=== PATIENT | female | born 1940 | race Caucasian/White ===

== ENCOUNTER 2016-08-26 14:27 | Inpatient (IN) | payer OTHER ==
[~2016-08-26] VITALS: Ht 167.6 cm; Wt 70.0 kg
[2016-08-26 15:15] LABS: EOSINOPHIL (%) 0 % (0-5); HEMATOCRIT 35.6 % (36.0-46.0); IMMATURE GRANULOCYTE (%) 0.4 % (0.0-0.7); INSTRUMENT ABS NEUTROPHIL CT 10.4 K/uL; LYMPHOCYTE COUNT 0.3 K/uL (1.0-2.8); MCH 28.3 PG (29.0-34.0); MCHC 33.7 G/DL (30.0-36.0); MEAN PLAT.VOLUME 8.5 uM^3 (9.5-12.4); MONOCYTE COUNT 0.6 K/uL (0-0.8); NEUTROPHIL (%) 92.1 % (45-76); NEUTROPHIL COUNT 10.4 K/uL (1.8-6.4); PLATELET COUNT 327 K/uL (156-360); RBC DIS.WIDTH-CV 13.8 % (11.8-14.6); RBC DIS.WIDTH-SD 42.5 % (39-53); RED BLOOD COUNT 4.24 M/uL (3.80-5.20); WHITE BLOOD COUNT 11.2 K/uL (4.1-10.2)
[2016-08-26 15:24] LABS: CHLORIDE 102 mEq/L (99-109); POTASSIUM 2.8 mEq/L (3.7-5.4); SODIUM 135 mEq/L (136-147)
[2016-08-26 15:25] LABS: GLUCOSE 124 mg/dL (70-99)
[2016-08-26 15:27] LABS: ANION GAP 9 MEQ/L (2-14)
[2016-08-26 15:29] LABS: GFR ESTIMATE (CALCULATED) > 59 mL/min/
[2016-08-26 15:30] LABS: UREA NITROGEN (BUN) 13 mg/dL (9-23)
[2016-08-26 15:43] LABS: TOTAL CK 4368 IU/L (1-294)
[2016-08-26 15:44] LABS: CREATINE KINASE 4368 IU/L (1-294)
[2016-08-26] MEDS ORDERED: BUSPAR10 MG PO (17:02)
[2016-08-26] MEDS ORDERED: LITHIUM CARBON300 MG PO (17:02)
[2016-08-26] MEDS ORDERED: CYMBALTA60 MG PO (17:03)
[2016-08-26] MEDS ORDERED: NEXIUM40 MG PO (17:03)
[2016-08-26] MEDS ORDERED: AMBIEN10 MG PO (17:03)
[2016-08-26] MEDS ORDERED: GABAPENTIN300 MG PO (17:04)
[2016-08-26] MEDS ORDERED: HYDROCHLOROTHIA25 MG PO (17:04)
[2016-08-26] MEDS ORDERED: PRAVASTATIN SOD40 MG PO (17:04)
[2016-08-26] MEDS ORDERED: MIRALAX255 GM PO (17:05)
[2016-08-26] MEDS ORDERED: ADVAIR 250/501 DISK IH (17:05)
[2016-08-26] MEDS ORDERED: NASACORT10.8 ML BOTH NARES (17:05)
[2016-08-26] MEDS ORDERED: LOSARTAN POTAS100 MG PO (17:05)
[2016-08-26] MEDS ORDERED: KLOR-CON SPRIN10 MEQ PO (17:06)
[2016-08-26] MEDS ORDERED: REFRESH EYE DR1 EACH BOTH EYES (17:06)
[2016-08-26] MEDS ORDERED: ZANTAC75 M1 PO (17:07)
[2016-08-26] MEDS ORDERED: EPIPEN ADU0.3 MG/0.3 IM (17:07)
[2016-08-26] MEDS ORDERED: SYNTHROID75 MCG PO (17:07)
[2016-08-26] MEDS ORDERED: PROAIR RESPICL90 MCG IH (17:07)
[2016-08-26 21:45] LABS: POTASSIUM 2.8 mEq/L (3.7-5.4)
[2016-08-26 21:54] LABS: TROP-I INTERPRETATION NEGATIVE; TROPONIN-I 0.03 ng/mL (0.0-0.30)
[2016-08-26 22:10] LABS: Estimated Average Glucose 123 mg/dL (70-123); HEMOGLOBIN A1c (GLYCOHEMOGLOB) 5.9 % HGB (Below 5.7)
[2016-08-26 23:00] VITALS: BP 156/98
[2016-08-27 00:52] LABS: HDL CHOLESTEROL 71 MG/DL (Desirable>=50); LDL CHOLESTEROL 40 mg/dL (Desirable<100); NON-HDL CHOLESTEROL 49 mg/dL (Desirable<160); TOTAL CHOLESTEROL 120 mg/dL (Desirable<200); TRIGLYCERIDES 47 MG/DL (Normal: <150)
[2016-08-27 03:30] LABS: HEMATOCRIT 33.9 % (36.0-46.0); MCH 28.7 PG (29.0-34.0); MCHC 33.3 G/DL (30.0-36.0); MEAN PLAT.VOLUME 8.8 uM^3 (9.5-12.4); PLATELET COUNT 331 K/uL (156-360); RBC DIS.WIDTH-CV 14.2 % (11.8-14.6); RBC DIS.WIDTH-SD 44.6 % (39-53); RED BLOOD COUNT 3.94 M/uL (3.80-5.20); WHITE BLOOD COUNT 10.7 K/uL (4.1-10.2)
[2016-08-27 03:37] LABS: CHLORIDE 108 mEq/L (99-109); POTASSIUM 2.5 mEq/L (3.7-5.4); SODIUM 140 mEq/L (136-147)
[2016-08-27 03:39] LABS: GLUCOSE 108 mg/dL (70-99)
[2016-08-27 03:41] LABS: ANION GAP 11 MEQ/L (2-14); TOTAL BILIRUBIN 0.3 mg/dL (0.0-1.0)
[2016-08-27 03:43] LABS: ALKALINE PHOSPHATASE 69 IU/L (3-129); GFR ESTIMATE (CALCULATED) > 59 mL/min/
[2016-08-27 03:44] LABS: UREA NITROGEN (BUN) 10 mg/dL (9-23)
[2016-08-27 03:54] LABS: TROP-I INTERPRETATION NEGATIVE; TROPONIN-I 0.04 ng/mL (0.0-0.30)
[2016-08-27 04:02] LABS: CREATINE KINASE 5633 IU/L (1-294)
[2016-08-27 08:00] VITALS: BP 154/68
[2016-08-27 10:17] LABS: TROP-I INTERPRETATION NEGATIVE; TROPONIN-I 0.04 ng/mL (0.0-0.30)
[2016-08-27 11:08] VITALS: BP 135/72
[2016-08-27 12:53] LABS: D-DIMER ELISA 1.24 mg/L FEU (< 0.57)
[2016-08-27 14:24] VITALS: BP 130/60
[2016-08-27 15:35] LABS: TROP-I INTERPRETATION NEGATIVE; TROPONIN-I 0.04 ng/mL (0.0-0.30)
[2016-08-27 15:39] VITALS: BP 132/61
[2016-08-27 15:42] LABS: ANION GAP 10 MEQ/L (2-14); CHLORIDE 104 MEQ/L (99-109); GFR ESTIMATE (CALCULATED) > 59 mL/min/; GLUCOSE 134 mg/dL (70-99); POTASSIUM 2.7 MEQ/L (3.7-5.4); SAMPLE HEMOLYSIS CHECK 0; SAMPLE ICTERIC CHECK 0; SAMPLE LIPEMIA CHECK 0; SODIUM 137 MEQ/L (136-147); UREA NITROGEN (BUN) 12 mg/dL (9-23)
[2016-08-27 15:44] LABS: CREATINE KINASE 3703 IU/L (1-294)
[2016-08-27 19:59] VITALS: BP 141/63
[2016-08-27 23:27] VITALS: BP 159/69
[2016-08-28 04:58] VITALS: BP 144/65
[2016-08-28 07:54] VITALS: BP 133/78
[2016-08-28 08:03] LABS: HEMATOCRIT 31.4 % (36.0-46.0); MCH 28.9 PG (29.0-34.0); MCHC 33.1 G/DL (30.0-36.0); MCV 87.2 FL (83-99); MEAN PLAT.VOLUME 8.8 uM^3 (9.5-12.4); PLATELET COUNT 309 K/uL (156-360); RBC DIS.WIDTH-CV 14.9 % (11.8-14.6); RBC DIS.WIDTH-SD 47.9 % (39-53); WHITE BLOOD COUNT 9.3 K/uL (4.1-10.2)
[2016-08-28 08:44] LABS: CHLORIDE 107 mEq/L (99-109); SODIUM 132 mEq/L (136-147)
[2016-08-28 08:45] LABS: MAGNESIUM 1.8 mg/dL (1.3-2.7); POTASSIUM 4.6 mEq/L (3.7-5.4)
[2016-08-28 08:47] LABS: GLUCOSE 92 mg/dL (70-99)
[2016-08-28 08:48] LABS: ANION GAP 5 MEQ/L (2-14)
[2016-08-28 08:50] LABS: GFR ESTIMATE (CALCULATED) > 59 mL/min/
[2016-08-28 08:51] LABS: UREA NITROGEN (BUN) 11 mg/dL (9-23)
[2016-08-28 09:06] LABS: CREATINE KINASE 4375 IU/L (1-294)
[2016-08-28 12:16] VITALS: BP 124/71
[2016-08-28 15:43] VITALS: BP 148/76
[2016-08-28 20:17] VITALS: BP 159/72
[2016-08-29 00:37] VITALS: BP 167/71
[2016-08-29 05:15] VITALS: BP 155/85
[2016-08-29 08:18] VITALS: BP 140/74
[2016-08-29 08:56] LABS: HEMATOCRIT 34.1 % (36.0-46.0); MCH 28.8 PG (29.0-34.0); MCHC 32.6 G/DL (30.0-36.0); MCV 88.6 FL (83-99); MEAN PLAT.VOLUME 8.6 uM^3 (9.5-12.4); PLATELET COUNT 326 K/uL (156-360); RBC DIS.WIDTH-CV 15.2 % (11.8-14.6); RBC DIS.WIDTH-SD 49.3 % (39-53); RED BLOOD COUNT 3.85 M/uL (3.80-5.20); WHITE BLOOD COUNT 8.4 K/uL (4.1-10.2)
[2016-08-29 11:44] VITALS: BP 156/70
[2016-08-29 11:53] LABS: ANION GAP 4 MEQ/L (2-14); CHLORIDE 107 MEQ/L (99-109); GFR ESTIMATE (CALCULATED) > 59 mL/min/; GLUCOSE 91 mg/dL (70-99); POTASSIUM 4.6 MEQ/L (3.7-5.4); SAMPLE HEMOLYSIS CHECK 0; SAMPLE ICTERIC CHECK 0; SAMPLE LIPEMIA CHECK 0; TOTAL CK 3111 IU/L (1-294); UREA NITROGEN (BUN) 9 mg/dL (9-23)
[2016-08-29 11:54] LABS: CREATINE KINASE 3111 IU/L (1-294); SODIUM 139 MEQ/L (136-147)
[2016-08-29 12:14] LABS: CK-MB 17.5 ng/mL (0.0-4.9)
[2016-08-30 00:08] VITALS: BP 148/79
[2016-08-30 08:35] VITALS: BP 152/85
[2016-08-30] MEDS ORDERED: TAMSULOSIN HCL0.4 MG PO (13:59)
[2016-08-30] MEDS ORDERED: TRAMADOL HCL50 MG PO (13:59)
[2016-08-30 16:24] VITALS: BP 146/69
[2016-08-30 23:04] VITALS: BP 146/73
[2016-08-31 08:20] VITALS: BP 156/69
== END 2016-08-31 13:10 | DRG 557 ==
LOC: EME 14:27 → EDOF 20:41 → 5SOUTH 20:41
PROVIDERS: Emergency Medicine; Hospitalist; Nurse Practitioner Adult Health
DX: M62.82 Rhabdomyolysis (principal); I63.9 Cerebral infarction, unspecified; S00.83XA Contusion of other part of head, initial encounter; E87.1 Hypo-osmolality and hyponatremia; I49.5 Sick sinus syndrome; R47.81 Slurred speech; R33.9 Retention of urine, unspecified; G89.29 Other chronic pain; E11.9 Type 2 diabetes mellitus without complications; F31.9 Bipolar disorder, unspecified; E86.0 Dehydration; E87.6 Hypokalemia; I10 Essential (primary) hypertension; Y93.01 Activity, walking, marching and hiking; R55 Syncope and collapse; I49.9 Cardiac arrhythmia, unspecified; M79.672 Pain in left foot; M79.671 Pain in right foot; E03.9 Hypothyroidism, unspecified; W01.0XXA Fall on same level from slipping, tripping and stumbling without subsequent striking against object, initial encounter; E78.5 Hyperlipidemia, unspecified; Z96.641 Presence of right artificial hip joint; J45.909 Unspecified asthma, uncomplicated; K21.9 Gastro-esophageal reflux disease without esophagitis; Z95.0 Presence of cardiac pacemaker; Z86.718 Personal history of other venous thrombosis and embolism; Z87.891 Personal history of nicotine dependence; Y92.009 Unspecified place in unspecified non-institutional (private) residence as the place of occurrence of the external cause; Y92.002 Bathroom of unspecified non-institutional (private) residence as the place of occurrence of the external cause
CPT/HCPCS: 70450; 71275; 72125; 72170; 73564; 73590; 74176; 80048; 80048 91; 80053; 80061; 80178; 82550; 82550 91; 82553; 83036; 83735; 84132 91; 84443; 84484; 85025; 85027; 85379; 92523 GN; 92610 GN; 93005; 93880; 93970; 94640; 94640 76; 97530 GO; 99202; J1644; J2405; J3480; J7030